=== PATIENT | male | born 1990 | race Caucasian/White ===

== ENCOUNTER 2021-11-16 07:09 | Emergency (ER) | payer MEDICARE, OTHER ==
[~2021-11-16] VITALS: Ht 167.6 cm; Wt 81.8 kg
[2021-11-16 07:12] VITALS: BP 121/71
== END 2021-11-16 07:40 | disposition left against medical advice (07) ==
LOC: EMS 07:10
DX: F10.239 Alcohol dependence with withdrawal, unspecified (principal); Z53.21 Procedure and treatment not carried out due to patient leaving prior to being seen by health care provider